=== PATIENT | male | born 1965 | race Caucasian/White ===

== ENCOUNTER 2017-07-24 07:51 | Day surgery (SDC) | payer BC ==
[~2017-07-24] VITALS: Ht 177.8 cm; Wt 97.5 kg
[~2017-07-24 07:51] MED LIST: AMBIEN10 MG PO; ANDROGEL2.5 G1 TD; BREO ELLIPTA I1 EACH IH; CEFTIN500 MG PO; CELEXA40 MG PO; CHILDREN BOTH NARES; LORTAB 10-3251 EACH PO; LYRICA100 MG PO; OMEPRAZOLE40 M1 PO; SOMA350 MG PO; VITAMIN D2000 UNIT PO
[2017-07-24 09:06] VITALS: BP 113/83
[2017-07-24 11:05] VITALS: BP 124/74
[2017-07-24 12:00] VITALS: BP 120/72
== END 2017-07-24 12:05 | disposition home or self-care (01) ==
LOC: SDC 07:51
PROC: 08B43ZZ Excision of Right Vitreous, Percutaneous Approach (ICD-10-PCS; principal; 2017-07-24)
DX: H43.391 Other vitreous opacities, right eye (principal); J45.909 Unspecified asthma, uncomplicated; K21.9 Gastro-esophageal reflux disease without esophagitis
CPT/HCPCS: J0690; J0713; J1170